=== PATIENT | male | born 1980 | race Caucasian/White ===

== ENCOUNTER → 2017-02-17 | Outpatient (CLI) | payer OTHER ==
[~2017-02-17] MED LIST: ANTI INFLAMMATORY PO
== END ==
LOC: STAR 09:15
PROVIDERS: ATTEND Orthopaedic Surgery
DX: Z02.9 Encounter for administrative examinations, unspecified (principal)

== ENCOUNTER 2017-02-24 12:31 | Day surgery (SDC) | payer OTHER ==
[~2017-02-24] VITALS: Ht 190.5 cm; Wt 91.0 kg
[~2017-02-24 12:31] MED LIST changes: +FENTANYL PF 250 MCG/5ML ONE; +MIDAZOLAM 1 MG/ML, 2ML ONE
[2017-02-24] MEDS ORDERED: ROPIvacaine/PF 0.5%, 30 ML ONE ×2 (13:27→13:28)
[2017-02-24] MEDS ORDERED: LIDOCAINE 0.5%-EPI 1:200K, 50ML ONE (13:27)
[2017-02-24] MEDS ORDERED: ROPIvacaine/PF 0.2%, 20 ML ONE (13:28)
[2017-02-24 13:32] VITALS: BP 109/75
[2017-02-24] MEDS ORDERED: LACTATED RINGERS 1,000 ML IV SCH (13:32)
[2017-02-24] MEDS ORDERED: NEOSPORIN OINT, 15GM ONE (13:55)
[2017-02-24] MEDS ORDERED: GLYCOPYRROLATE 0.2MG/1ML ONE (13:59)
[2017-02-24] MEDS ORDERED: NEOSTIGMINE 1 MG/ML, 10ML ONE (13:59)
[2017-02-24] MEDS ORDERED: ROCURONIUM 10 MG/ML ONE (13:59)
[2017-02-24] MEDS ORDERED: PROPOFOL 10 MG/ML, 20ML ONE (13:59)
[2017-02-24] MEDS ORDERED: CEFAZOLIN 1,000 MG ONE (13:59)
[2017-02-24] MEDS ORDERED: HYDROmorphone 1 MG/ML, 1ML IV PRN (14:00)
[2017-02-24] MEDS ORDERED: ONDANSETRON 2MG/ML, 2ML IVPush PRN (14:00)
[2017-02-24] MEDS ORDERED: OXYcodone 5 MG/5 ML ORAL.SOL UDC PO PRN (14:00)
[2017-02-24] MEDS ORDERED: PROMETHAZINE 25 MG/ML, 1ML IV PRN (14:00)
[2017-02-24] MEDS ORDERED: MEPERIDINE/PF 25MG/0.5ML IVPush PRN (14:00)
[2017-02-24] MEDS ORDERED: ACETAMINOPHEN 325 MG TABLET PO PRN (14:00)
[2017-02-24] MEDS ORDERED: METOCLOPRAMIDE 5 MG/ML, 2ML IV PRN (14:00)
[2017-02-24] MEDS ORDERED: FENTANYL PF 250 MCG/5ML ONE ×2 (14:50→16:08)
[2017-02-24] MEDS: FENTANYL PF 100 MCG/2ML IV PRN ×3 (16:47→17:25)
[2017-02-24] MEDS ORDERED: FENTANYL PF 100 MCG/2ML ONE (17:23)
== END 2017-02-24 18:55 ==
LOC: OUT 12:31
PROVIDERS: ATTEND Orthopaedic Surgery
DX: S83.512A Sprain of anterior cruciate ligament of left knee, initial encounter (principal); S83.282A Other tear of lateral meniscus, current injury, left knee, initial encounter; S83.412A Sprain of medial collateral ligament of left knee, initial encounter; X58.XXXA Exposure to other specified factors, initial encounter; Y93.9 Activity, unspecified; Y92.9 Unspecified place or not applicable; Y99.9 Unspecified external cause status
CPT/HCPCS: 29882; 29888; 29999; 73560; C1713; C1762; J0690; J2250; J2704; J2710; J2795; J3010; J7120; J3490